=== PATIENT | female | born 1970 | race Caucasian/White ===

== ENCOUNTER 2017-08-11 17:58 | Inpatient (IN) | payer BC ==
[~2017-08-11] VITALS: Ht 170.2 cm; Wt 78.1 kg
[~2017-08-11 17:58] MED LIST: ALBU8I INH; BENZ100 PO; CARB100S PO; MEDR4PAK3 PO; ZITH250T PO
[2017-08-11 18:04] VITALS: BP 137/76; PULSE 89; RESP 16; TEMP 98.3; O2SAT 98
[2017-08-11 18:17] VITALS: BP 123/66; TEMP 98.9; O2SAT 97
[2017-08-11 18:27] LABS: BILIRUBIN, URINE NEG (NEG); BLOOD, URINE LARGE (NEG); GLUCOSE,URINE NEG (NEG); KETONE, URINE NEG (NEG); NITRITE,URINE NEG (NEG); URINE COLOR YELLOW (YELLW/STRAW); URINE LEUKOCYTE ESTERASE NEG (NEG)
[2017-08-11 18:32] LABS: SQUAMOUS EPITHELIAL CELL URINE 0-5 /hpf (0-5); WBC, URINE 0-2 /hpf (0-5)
[2017-08-11] MEDS ORDERED: TEGR200T PO (19:05)
[2017-08-11 19:06] VITALS: BP 125/84; PULSE 86; RESP 18; O2SAT 97
[2017-08-11] MEDS ORDERED: SODIUM CHLOR 0.9% 1000 ML INJ 1,000 ML IV SCH (19:14)
[2017-08-11] MEDS ORDERED: ONDANSETRON HCL 4 MG/2 ML VIAL IVP ONE (19:15)
[2017-08-11] MEDS ORDERED: SODIUM CHLORIDE 0.9% FLUSH 10 ML FLUSH IV FLUSH PRN ×2 (19:15→21:15)
[2017-08-11] MEDS ORDERED: MORPHINE SULFATE 4 MG/ML INJ IV PUSH ONE (19:15)
[2017-08-11] MEDS ORDERED: KETOROLAC TROMETHAMINE 30 MG/ML (IVP) VIAL IVP ONE (19:15)
--- NOTE | 2017-08-11 19:20 | PD ---
HPI Chief Complaint: Flank/Kidney Pain Time Seen by Provider: 18:58 Travel History International Travel<30 days: No Contact w/Intl Traveler<30days: No Traveled to known affect area: No History of Present Illness HPI The patient is a 47-year-old female who presents to the emergency department for right flank pain that started this morning. The patient complains of mid right low back pain that radiates into the right flank. She also complains a hematuria, urgency, and frequency. The patient does have history of kidney stones. The patient has a previous hysterectomy, denies any vaginal bleeding or discharge. She does complain of nausea secondary to the pain. She also complains of loose watery stools throughout the day. She has been getting over recent upper respiratory/viral infection. The patient denies any current fever, chills, or sweats. Symptoms are moderate. There are no current alleviating or exacerbating factors. PFSH Past Medical History Diabetes: No Diminished Hearing: No Medical other: Yes (TRIGEMINAL NEURALGIA, FIBROMYALGIA, ITP) Seizures: Yes (CHILDHOOD) Tetanus Vaccination: > 5 Years Influenza Vaccination: No ?: Not Past Surgical History Gynecologic Surgery: Yes (PARTIAL HYSTERECTOMY) Hysterectomy: Yes (PARTIAL) Social History Alcohol Use: Yes (DAILY) Tobacco Use: Yes (1/2 PPD) Substance Use: No Allergies-Medications (Allergen,Severity, Reaction): Coded Allergies: No Known Allergies (Verified Adverse Reaction, Unknown, 08/11/17) Reported Meds & Prescriptions Reported Meds & Active Scripts Active Reported Tegretol (Carbamazepine) 200 Mg Tab 200 Mg PO DAILY Review of Systems Except as stated in HPI: all other systems reviewed are Neg General / Constitutional: No: Fever Cardiovascular: No: Chest Pain or Discomfort Respiratory: No: Shortness of Breath Gastrointestinal: Positive: Nausea, Vomiting, Diarrhea, Abdominal Pain Genitourinary: Positive: Urgency, Frequency, Hematuria, Flank Pain Skin: No Rash Physical Exam Narrative GENERAL: Awake, alert, pleasant 47-year-old female who appears her stated age and is in no acute respiratory distress. SKIN: Focused skin assessment warm/dry. HEAD: Atraumatic. Normocephalic. EYES: Pupils equal and round. No scleral icterus. No injection or drainage. ENT: No nasal bleeding or discharge. Mucous membranes pink and moist. NECK: Trachea midline. No JVD. CARDIOVASCULAR: Regular rate and rhythm. No murmur appreciated. RESPIRATORY: No accessory muscle use. Clear to auscultation. Breath sounds equal bilaterally. GASTROINTESTINAL: Abdomen soft, tender palpation right flank. Negative Wilson' s. Negative McBurney's. No suprapubic discomfort. Back: Mild right CVA tenderness. MUSCULOSKELETAL: No obvious deformities. No clubbing. No cyanosis. No edema. NEUROLOGICAL: Awake and alert. No obvious cranial nerve deficits. Motor grossly within normal limits. Normal speech. PSYCHIATRIC: Appropriate mood and affect; insight and judgment normal. Data Data Last Documented VS Vital Signs Date Time Temp Pulse Resp B/P (MAP) Pulse Ox O2 Delivery O2 Flow Rate FiO2 08/11/17 20:37 16 08/11/17 20:36 84 131/77 (95) 98 Room Air 08/11/17 18:04 98.3 Orders Orders Urinalysis - C+S If Indicated (08/11/17 18:07) Complete Blood Count With Diff (08/11/17 19:14) Comprehensive Metabolic Panel (08/11/17 19:14) Ct Abd/Pel W/O Iv Contrast (08/11/17 19:14) Iv Access Insert/Monitor (08/11/17 19:14) Ecg Monitoring (08/11/17 19:14) Oximetry (08/11/17 19:14) Morphine Inj (Morphine Inj) (08/11/17 19:15) Ondansetron Inj (Zofran Inj) (08/11/17 19:15) Sodium Chlor 0.9% 1000 Ml Inj (Ns 1000 M (08/11/17 19:14) Sodium Chloride 0.9% Flush (Ns Flush) (08/11/17 19:15) Ketorolac Inj (Toradol Inj) (08/11/17 19:15) Lipase (08/11/17 19:21) Methylprednisolone So Succ Inj (Solumedr (08/11/17 21:00) Admit Order (Ed Use Only) (08/11/17 21:06) Type And Screen (08/11/17 21:06) Consult Hematology (08/11/17 ) Labs Laboratory Tests Test 08/11/17 18:08 08/11/17 19:45 Urine Collection Type CLEAN CATCH Urine Color YELLOW Urine Turbidity CLEAR Urine pH 6.0 Urine Specific [place] LESS/EQUAL 1.005 Urine Protein NEG mg/dL Urine Glucose (UA) NEG mg/dL Urine Ketones NEG mg/dL Urine Occult Blood LARGE Urine Nitrite NEG Urine Bilirubin NEG Urine Urobilinogen 0.2 MG/DL Urine Leukocyte Esterase NEG Urine WBC 0-2 /hpf Urine Squamous Epithelial Cells 0-5 /hpf Microscopic Urinalysis Comment CULT NOT INDICATED White Blood Count 6.7 TH/MM3 Red Blood Count 4.73 MIL/MM3 Hemoglobin 15.0 GM/DL Hematocrit 45.5 % Mean Corpuscular Volume 96.2 FL Mean Corpuscular Hemoglobin 31.8 PG Mean Corpuscular Hemoglobin Concent 33.0 % Red Cell Distribution Width 12.9 % Platelet Count 19 TH/MM3 Mean Platelet Volume 11.2 FL Neutrophils (%) (Auto) 74.2 % Lymphocytes (%) (Auto) 12.8 % Monocytes (%) (Auto) 4.9 % Eosinophils (%) (Auto) 1.9 % Basophils (%) (Auto) 6.2 % Neutrophils # (Auto) 5.0 TH/MM3 Lymphocytes # (Auto) 0.9 TH/MM3 Monocytes # (Auto) 0.3 TH/MM3 Eosinophils # (Auto) 0.1 TH/MM3 Basophils # (Auto) 0.4 TH/MM3 CBC Comment AUTO DIFF Differential Total Cells Counted 100 Neutrophils % (Manual) 78 % Band Neutrophils % 9 % Lymphocytes % 7 % Monocytes % 4 % Eosinophils % 1 % Basophils % 1 % Neutrophils # (Manual) 5.8 TH/MM3 Differential Comment FINAL DIFF MANUAL Platelet Estimate LOW Platelet Morphology Comment NORMAL Red Cell Morphology Comment NORMAL Blood Urea Nitrogen 6 MG/DL Creatinine 0.74 MG/DL Random Glucose 84 MG/DL Total Protein 7.4 GM/DL Albumin 4.0 GM/DL Calcium Level 8.5 MG/DL Alkaline Phosphatase 120 U/L Aspartate Amino Transf (AST/SGOT) 78 U/L Alanine Aminotransferase (ALT/SGPT) 67 U/L Total Bilirubin 0.2 MG/DL Sodium Level 136 MEQ/L Potassium Level 3.5 MEQ/L Chloride Level 103 MEQ/L Carbon Dioxide Level 23.0 MEQ/L Anion Gap 10 MEQ/L Estimat Glomerular Filtration Rate 83 ML/MIN Lipase 264 U/L MDM Medical Decision Making Medical Screen Exam Complete: Yes Emergency Medical Condition: Yes Medical Record Reviewed: Yes Interpretation(s) Laboratory Tests Test 08/11/17 18:08/11/17 19:45 Urine Collection Type CLEAN CATCH Urine Color YELLOW Urine Turbidity CLEAR Urine pH 6.0 Urine Specific [place] LESS/EQUAL 1.005 Urine Protein NEG mg/dL Urine Glucose (UA) NEG mg/dL Urine Ketones NEG mg/dL Urine Occult Blood LARGE Urine Nitrite NEG Urine Bilirubin NEG Urine Urobilinogen 0.2 MG/DL Urine Leukocyte Esterase NEG Urine WBC 0-2 /hpf Urine Squamous Epithelial Cells 0-5 /hpf Microscopic Urinalysis Comment CULT NOT INDICATED White Blood Count 6.7 TH/MM3 Red Blood Count 4.73 MIL/MM3 Hemoglobin 15.0 GM/DL Hematocrit 45.5 % Mean Corpuscular Volume 96.2 FL Mean Corpuscular Hemoglobin 31.8 PG Mean Corpuscular Hemoglobin Concent 33.0 % Red Cell Distribution Width 12.9 % Platelet Count 19 TH/MM3 Mean Platelet Volume 11.2 FL Neutrophils (%) (Auto) 74.2 % Lymphocytes (%) (Auto) 12.8 % Monocytes (%) (Auto) 4.9 % Eosinophils (%) (Auto) 1.9 % Basophils (%) (Auto) 6.2 % Neutrophils # (Auto) 5.0 TH/MM3 Lymphocytes # (Auto) 0.9 TH/MM3 Monocytes # (Auto) 0.3 TH/MM3 Eosinophils # (Auto) 0.1 TH/MM3 Basophils # (Auto) 0.4 TH/MM3 CBC Comment AUTO DIFF Differential Total Cells Counted 100 Neutrophils % (Manual) 78 % Band Neutrophils % 9 % Lymphocytes % 7 % Monocytes % 4 % Eosinophils % 1 % Basophils % 1 % Neutrophils # (Manual) 5.8 TH/MM3 Differential Comment FINAL DIFF MANUAL Platelet Estimate LOW Platelet Morphology Comment NORMAL Red Cell Morphology Comment NORMAL Blood Urea Nitrogen 6 MG/DL Creatinine 0.74 MG/DL Random Glucose 84 MG/DL Total Protein 7.4 GM/DL Albumin 4.0 GM/DL Calcium Level 8.5 MG/DL Alkaline Phosphatase 120 U/L Aspartate Amino Transf (AST/SGOT) 78 U/L Alanine Aminotransferase (ALT/SGPT) 67 U/L Total Bilirubin 0.2 MG/DL Sodium Level 136 MEQ/L Potassium Level 3.5 MEQ/L Chloride Level 103 MEQ/L Carbon Dioxide Level 23.0 MEQ/L Anion Gap 10 MEQ/L Estimat Glomerular Filtration Rate 83 ML/MIN Lipase 264 U/L CT of the abdomen and pelvis without contrast reveals obstructing 3 mm stone at the right UVJ. Differential Diagnosis Differential diagnosis includes nephrolithiasis, pyelonephritis, atypical appendicitis, atypical cholecystitis, ovarian cyst, gastroenteritis, pancreatitis. Narrative Course IV was established, labs are drawn and sent, the patient was placed on cardiac telemetry monitoring and continuous pulse oximetry monitoring. Patient has a previous history of hysterectomy, therefore, no bedside test was obtained. UA reveals large amount of blood. The patient was a chief investigator morphine, Toradol, Zofran, and IV fluids. Noncontrast CT of the abdomen and pelvis was performed. UA reveals large blood. White count is normal. Hemoglobin within normal limits. However, platelets are 19. Patient does have a history of ITP, previous platelets on EMR range from the 63-105 except for today's platelet count of 19. CT is positive for obstructing 3 mm stone at the right UVJ. The patient was reassessed at 8:40 PM, her pain is significantly improved. The on-call dress finisher was paged at 8:43 PM, Dr. Almeida, in regards to ITP with platelets of 19,000. I discussed the patient with Dr. Almeida who recommends admission, steroids, and reevaluation of platelets in the morning. I had a discussion with the patient regarding inpatient and outpatient treatment, I did advise her recommendations were made by hematology for admission. After discussion she was agreeable to be admitted. The patient was admitted to the medical service and administered Solu-Medrol 125 mg intravenously. NSAIDs will be held for her kidney stone pain, patient will be treated with opiates and Tylenol. Physician Communication [facility] I discussed the patient with Dr. Wagoner who agrees with admission. Diagnosis Primary Impression: Nephrolithiasis Additional Impressions: Idiopathic thrombocytopenia Thrombocytopenia Admitting Information Admitting Physician Requests: Admit Condition: Stable Isaac Tucker MD Aug 11, 2017 19:20
[2017-08-11 20:00] LABS: BASOPHIL # 0.4 TH/MM3 (0-0.2); BASOPHIL % 6.2 % (0.0-2.0); EOSINOPHIL # 0.1 TH/MM3 (0-0.4); EOSINOPHIL % 1.9 % (0.0-4.0); HEMATOCRIT 45.5 % (35.0-46.0); LYMPH % 12.8 % (9.0-44.0); LYMPHOCYTE # 0.9 TH/MM3 (1.0-4.8); MEAN CELL VOLUME 96.2 FL (80.0-100.0); MEAN CORPUSCULAR HEMOGLOBIN 31.8 PG (27.0-34.0); MEAN PLATELET VOLUME 11.2 FL (7.0-11.0); MONO % 4.9 % (0.0-8.0); MONOCYTE # 0.3 TH/MM3 (0-0.9); NEUT % 74.2 % (16.0-70.0); RED BLOOD COUNT 4.73 MIL/MM3 (4.00-5.30); RED CELL DISTRIBUTION WIDTH 12.9 % (11.6-17.2); WHITE BLOOD COUNT 6.7 TH/MM3 (4.0-11.0)
[2017-08-11 20:08] LABS: PLATELET COUNT 19 TH/MM3 (150-450)
[2017-08-11 20:16] LABS: CHLORIDE 103 MEQ/L (98-107); SODIUM (NA) 136 MEQ/L (136-145)
[2017-08-11 20:19] LABS: CALCIUM 8.5 MG/DL (8.5-10.1)
[2017-08-11 20:20] LABS: BLOOD UREA NITROGEN 6 MG/DL (7-18); GLUCOSE,RANDOM 84 MG/DL (74-106)
[2017-08-11 20:23] LABS: ALT (GPT) 67 U/L (10-53); AST (GOT) 78 U/L (15-37); CREATININE 0.74 MG/DL (0.50-1.00); GLOMERULAR FILTRATION RATE 83 ML/MIN (>89)
[2017-08-11 20:24] LABS: TOTAL BILIRUBIN ADULT 0.2 MG/DL (0.2-1.0); TOTAL PROTEIN 7.4 GM/DL (6.4-8.2)
[2017-08-11 20:25] LABS: BANDS 9 % (0-6); BASOPHILS 1 % (0-2); LYMPHOCYTES 7 % (9-44); MONOCYTES 4 % (0-8); NEUTROPHIL # MANUAL DIFF 5.8 TH/MM3 (1.8-7.7); POLYS (SEG NEUTROPHILS) 78 % (16-70)
[2017-08-11 20:26] LABS: ALKALINE PHOSPHATASE 120 U/L (45-117)
[2017-08-11 20:36] VITALS: BP 131/77; PULSE 84; RESP 16; O2SAT 98
--- NOTE | 2017-08-11 20:39 | RADRPT ---
EXAM DATE/TIME: 08/11/2017 20:16 [facility] COMPARISON: No previous studies available for comparison. INDICATIONS : Right flank pain. Gross hematuria. ORAL CONTRAST: No oral contrast ingested. RADIATION DOSE: 15.48 CTDIvol (mGy) MEDICAL HISTORY : None SURGICAL HISTORY : Hysterectomy. ENCOUNTER: Initial ACUITY: 1 day PAIN SCALE: 9/10 LOCATION: Right flank TECHNIQUE: Volumetric scanning of the abdomen and pelvis was performed. Using automated exposure control and ad justment of the mA and/or kV according to patient size, radiation dose was kept as low as reasonably achievable to obtain optimal diagnostic quality images. DICOM format image data is available electro nically for review and comparison. FINDINGS: Lower lungs are clear The portion of the liver and spleen are free of focal defects Pancreas and adrenal glands appear normal Right kidney: There is prominence to the right ureter extending down to the right ureterovesical junction where bas e 3 mm stone is evident. Left kidney: is unremarkable There are no remaining calcifications in either kidney There is no ascites. There is no adenopathy. Pelvic contents are unremarkable Review of bone windows reveals only mild degenerative changes. CONCLUSION: Obstructing 3 mm stone at right UVJ Lacho Villanueva MD FACR on August 11, 2017 at 20:34 Board Certified Radiologist. This report was verified electronically.
[2017-08-11] MEDS ORDERED: methylPREDNISolone SOD SUCC 125 MG/2 ML VIAL IV PUSH ONE (21:00)
[2017-08-11] MEDS ORDERED: ONDANSETRON HCL 4 MG/2 ML VIAL IVP PRN (21:15)
[2017-08-11] MEDS ORDERED: BISACODYL 10 MG SUPP RECTAL PRN (21:15)
[2017-08-11] MEDS ORDERED: SENNOSIDES 8.6 MG TAB PO PRN (21:15)
[2017-08-11] MEDS ORDERED: MAGNESIUM HYDROXIDE SUSP 30 ML CUP PO PRN (21:15)
[2017-08-11] MEDS ORDERED: ACETAMINOPHEN/HYDROcodone 325 MG/5 MG TAB PO PRN (21:15)
[2017-08-11] MEDS ORDERED: ACETAMINOPHEN 325 MG TAB PO PRN (21:15)
[2017-08-11] MEDS ORDERED: LACTULOSE SYRUP 20 GM/30 ML CUP PO PRN (21:15)
[2017-08-11] MEDS: SODIUM CHLOR 0.9% 1000 ML INJ 1,000 ML IV SCH (21:34)
[2017-08-11] MEDS: ACETAMINOPHEN/HYDROcodone 325 MG/10 MG TAB PO PRN (21:35)
[2017-08-12] VITALS: BP 108/75; PULSE 82; RESP 20; TEMP 97.2; O2SAT 82
[2017-08-12] MEDS: ACETAMINOPHEN/HYDROcodone 325 MG/10 MG TAB PO PRN ×5 (01:46→21:32)
[2017-08-12 04:00] VITALS: BP 108/72; PULSE 82; RESP 18; TEMP 97.2; O2SAT 95
[2017-08-12 06:59] LABS: AUTOMATED NEUTROPHIL # 6.9 TH/MM3 (1.8-7.7); BASOPHIL % 0.4 % (0.0-2.0); EOSINOPHIL % 0.1 % (0.0-4.0); HEMATOCRIT 43.9 % (35.0-46.0); HEMOGLOBIN 14.8 GM/DL (11.6-15.3); LYMPH % 4.8 % (9.0-44.0); LYMPHOCYTE # 0.4 TH/MM3 (1.0-4.8); MEAN CELL VOLUME 96.4 FL (80.0-100.0); MEAN CORPUSCULAR HEMOGLOBIN 32.4 PG (27.0-34.0); MEAN CORPUSCULAR HGB CONC 33.6 % (32.0-36.0); MEAN PLATELET VOLUME 11.4 FL (7.0-11.0); MONO % 0.7 % (0.0-8.0); MONOCYTE # 0.1 TH/MM3 (0-0.9); RED BLOOD COUNT 4.56 MIL/MM3 (4.00-5.30); RED CELL DISTRIBUTION WIDTH 12.9 % (11.6-17.2); WHITE BLOOD COUNT 7.4 TH/MM3 (4.0-11.0)
[2017-08-12 07:07] LABS: PLATELET COUNT 18 TH/MM3 (150-450)
[2017-08-12 07:13] LABS: ALBUMIN 3.5 GM/DL (3.4-5.0); ALKALINE PHOSPHATASE 113 U/L (45-117); ALT (GPT) 53 U/L (10-53); AST (GOT) 43 U/L (15-37); BICARBONATE 25.3 MEQ/L (21.0-32.0); BLOOD UREA NITROGEN 6 MG/DL (7-18); CALCIUM 8.5 MG/DL (8.5-10.1); CHLORIDE 109 MEQ/L (98-107); CREATININE 0.59 MG/DL (0.50-1.00); GLOMERULAR FILTRATION RATE 108 ML/MIN (>89); GLUCOSE,RANDOM 119 MG/DL (74-106); SODIUM (NA) 141 MEQ/L (136-145); TOTAL BILIRUBIN ADULT 0.3 MG/DL (0.2-1.0); TOTAL PROTEIN 6.7 GM/DL (6.4-8.2)
[2017-08-12 08:00] VITALS: BP 164/72; PULSE 73; TEMP 96.5; O2SAT 97
--- NOTE | 2017-08-12 08:45 | HHI.HP ---
[facility] Primary [facility]ician No Primary Care Physician Admission Diagnosis Nephrolithiasis, ITP, thrombocytopenia Diagnoses: (1) Nephrolithiasis Diagnosis: Principal (2) Idiopathic thrombocytopenia Diagnosis: Principal Chief Complaint: Urinary symptoms Travel History International Travel<30 Days: No Contact w/Intl Traveler <30 Da: No Traveled to Known Affected Are: No History of Present Illness 47-year-old female with known history of kidney stones, idiopathic thrombocytopenia purpura, trigeminal neuralgia, fibromyalgia who presented to the emergency department because of hematuria, urinary symptoms. Patient indicates that she is in normal state of health until yesterday morning when she got up to go to the bathroom and she noticed that she was having hematuria, urinary urgency. She does have history of kidney stones in the past and she progressively got worse throughout the day with hematuria, started having clots , significant spasms had doubled her over in pain. She had an episode of vomiting so she came to emergency department for evaluation. Patient had workup done and was found to have a 3 mm stone in the right UVJ junction. At the present time patient states that her symptoms have improved. She is no longer experiencing any significant hematuria. Her urine is orange in color. Pain is controlled with medication. Patient does have history of a idiopathic thrombocytopenia purpura. She is not under any treatment at this time. Patient was found to have a platelet count of 19, she is given Solu-Medrol in the emergency department. Patient does not know her most recent platelet count. She does not get it checked on a regular basis. She has no other signs of active bleeding other than the hematuria. Because of the above findings, ER physician recommended patient be admitted for further evaluation and management. Review of Systems Gastrointestinal: COMPLAINS OF: Nausea, Vomiting Genitourinary: COMPLAINS OF: Urinary frequency, Urgency, Hematuria Except as stated in HPI: all other systems reviewed are Neg Past Family Social History Past Medical History History of renal lithiasis 15 years ago Idiopathic thrombocytopenia purpura, no recent follow-up Trigeminal neuralgia Fibromyalgia Past Surgical History Partial hysterectomy Reported Medications Reported Meds & Active Scripts Active Reported Tegretol (Carbamazepine) 200 Mg Tab 200 Mg PO DAILY Allergies: Coded Allergies: No Known Allergies (Verified Adverse Reaction, Unknown, 08/11/17) Family History Reviewed his significant father at age 78 with history of stroke and seizure, mother still alive with hypertension Social History Patient smokes one half pack of cigarettes a day since she was 16 years old. She does drink alcohol on a daily basis, 2 drinks daily. Denies any illicit drug Physical Exam Vital Signs Vital Signs Date Time Temp Pulse Resp B/P (MAP) Pulse Ox O2 Delivery O2 Flow Rate FiO2 08/12/17 07:30 18 08/12/17 04:00 97.2 82 18 108/72 (84) 95 08/12/17 00:00 97.2 82 20 108/75 (86) 82 08/11/17 20:37 16 08/11/17 20:36 84 16 131/77 (95) 98 Room Air 08/11/17 19:57 18 08/11/17 19:06 86 18 125/84 (98) 97 Room Air 08/11/17 18:04 98.3 89 16 137/76 (96) 98 Physical Exam GENERAL: Well-developed, well-nourished, in no acute distress. alert and orientated HEENT: Head is normocephalic without any lesions or masses noted. Facial features are symmetric. Eyes: Pupils equal round reactive to light. Extraocular muscles are intact. Conjunctivae were clear. Oropharyngeal: Pharynx without any erythema edema. Tongue is midline without deviation. Buccal mucosa is moist without any masses or lesions NECK: Supple without any masses. Trachea midline no deviation. No JVD, no bruits are appreciated CARDIAC: Regular rhythm, regular rate. S1/S2 are heard. No murmurs gallops or rubs. LUNGS: Clear to auscultation bilaterally. No wheeze, rhonchi or rales. No use of accessory muscles on inspiration or expiration. ABDOMEN: Soft, nontender. Nondistended. Bowel sounds heard in all 4 quadrants. No organomegaly or masses. Negative rebound, negative guarding EXTREMITIES: No edema, pulses are equal bilaterally. No cyanosis or clubbing NEUROLOGY: Mood and affect appear appropriate. Cranial nerves II through XII grossly intact. Muscle strength 5/5 in upper and lower extremities bilaterally. Deep tendon reflexes are 2+ in upper and lower extremities bilaterally. Laboratory Laboratory Tests Test 08/11/17 18:08 08/11/17 19:45 08/12/17 05:33 08/12/17 05:35 Urine Collection Type CLEAN CATCH Urine Color YELLOW Urine Turbidity CLEAR Urine pH 6.0 Urine Specific [place] LESS/EQUAL 1.005 Urine Protein NEG Urine Glucose (UA) NEG Urine Ketones NEG Urine Occult Blood LARGE Urine Nitrite NEG Urine Bilirubin NEG Urine Urobilinogen 0.2 Urine Leukocyte Esterase NEG Urine WBC 0-2 Urine Squamous Epithelial Cells 0-5 Microscopic Urinalysis Comment CULT NOT INDICATED White Blood Count 6.7 7.4 Red Blood Count 4.73 4.56 Hemoglobin 15.0 14.8 Hematocrit 45.5 43.9 Mean Corpuscular Volume 96.2 96.4 Mean Corpuscular Hemoglobin 31.8 32.4 Mean Corpuscular Hemoglobin Concent 33.0 33.6 Red Cell Distribution Width 12.9 12.9 Platelet Count 19 18 Mean Platelet Volume 11.2 11.4 Neutrophils (%) (Auto) 74.2 94.0 Lymphocytes (%) (Auto) 12.8 4.8 Monocytes (%) (Auto) 4.9 0.7 Eosinophils (%) (Auto) 1.9 0.1 Basophils (%) (Auto) 6.2 0.4 Neutrophils # (Auto) 5.0 6.9 Lymphocytes # (Auto) 0.9 0.4 Monocytes # (Auto) 0.3 0.1 Eosinophils # (Auto) 0.1 0.0 Basophils # (Auto) 0.4 0.0 CBC Comment AUTO DIFF AUTO DIFF Differential Total Cells Counted 100 Neutrophils % (Manual) 78 Band Neutrophils % 9 Lymphocytes % 7 Monocytes % 4 Eosinophils % 1 Basophils % 1 Neutrophils # (Manual) 5.8 Differential Comment FINAL DIFF MANUAL AUTO DIFF CONFIRMED Platelet Estimate LOW RARE Platelet Morphology Comment NORMAL NORMAL Red Cell Morphology Comment NORMAL Blood Urea Nitrogen 6 6 Creatinine 0.74 0.59 Random Glucose 84 119 Total Protein 7.4 6.7 Albumin 4.0 3.5 Calcium Level 8.5 8.5 Alkaline Phosphatase 120 113 Aspartate Amino Transf (AST/SGOT) 78 43 Alanine Aminotransferase (ALT/SGPT) 67 53 Total Bilirubin 0.2 0.3 Sodium Level 136 141 Potassium Level 3.5 4.8 Chloride Level 103 109 Carbon Dioxide Level 23.0 25.3 Anion Gap 10 7 Estimat Glomerular Filtration Rate 83 108 Lipase 264 Result Diagram: 08/12/17 0533 08/12/17 0535 Caprini VTE Risk Assessment Caprini VTE Risk Assessment: No/Low Risk (score <= 1) Caprini Risk Assessment Model Point Value = 1 Point Value = 2 Point Value = 3 Point Value = 5 Age 41-60 Minor surgery BMI > 25 kg/m2 Swollen legs Varicose veins or History of unexplained or recurrent spontaneous Oral contraceptives or hormone replacement Sepsis (< 1 month) Serious lung disease, including pneumonia (< 1 month) Abnormal pulmonary function Acute myocardial infarction Congestive heart failure (< 1 month) History of inflammatory bowel disease Medical patient at bed rest Age 61-74 Arthroscopic surgery Major open surgery (> 45 min) Laparoscopic surgery (> 45 min) Malignancy Confined to bed (> 72 hours) Immobilizing plaster cast Central venous access Age >= 75 History of VTE Family history of VTE Factor V Leiden Prothrombin [id number] Lupus anticoagulant Anticardiolipin antibodies Elevated serum homocysteine Heparin-induced thrombocytopenia Other congenital or acquired thrombophilia Stroke (< 1 month) Elective arthroplasty Hip, pelvis, or leg fracture Acute spinal cord injury (< 1 month) Prophylaxis Regimen Total Risk Factor Score Risk Level Prophylaxis Regimen 0-1 Low Early ambulation 2 Moderate Order ONE of the following: *Sequential Compression Device (SCD) *Heparin 5000 units SQ BID 3-4 Higher Order ONE of the following medications: *Heparin 5000 units SQ TID *Enoxaparin/Lovenox 40 mg SQ daily (WT < 150 kg, CrCl > 30 mL/min) *Enoxaparin/Lovenox 30 mg SQ daily (WT < 150 kg, CrCl > 10-29 mL/min) *Enoxaparin/Lovenox 30 mg SQ BID (WT < 150 kg, CrCl > 30 mL/min) AND/OR *Sequential Compression Device (SCD) 5 or more Highest Order ONE of the following medications: *Heparin 5000 units SQ TID (Preferred with Epidurals) *Enoxaparin/Lovenox 40 mg SQ daily (WT < 150 kg, CrCl > 30 mL/min) *Enoxaparin/Lovenox 30 mg SQ daily (WT < 150 kg, CrCl > 10-29 mL/min) *Enoxaparin/Lovenox 30 mg SQ BID (WT < 150 kg, CrCl > 30 mL/min) AND *Sequential Compression Device (SCD) Assessment and Plan Assessment and Plan Renal lithiasis with obstructive uropathy CT scan does show 3 mm stone obstructing at the UVJ junction Continue pain control Continue IV fluids Continue to strain urine Will likely pass on its own Urology consulted for further recommendations Idiopathic thrombocytopenia purpura, untreated Patient was given Solu-Medrol emergency department Continue monitor platelet count, transfuse if platelet count less than 15,000 Hematology consulted for recommendations Trigeminal neuralgia, fibromyalgia Continue home medications DVT prevention Low risk, early ambulation, significant thrombocytopenia Physician Certification 2 Midnight Certification Type: Admission for Inpatient Services Order for Inpatient Services The services are ordered in accordance with Medicare regulations or non- Medicare payer requirements, as applicable. In the case of services not specified as inpatient-only, they are appropriately provided as inpatient services in accordance with the 2-midnight benchmark. Estimated LOS (days): 2 days is the estimated time the patient will need to remain in the hospital, assuming treatment plan goals are met and no additional complications. Post-Hospital Plan: Not yet determined Mane Mobley Aug 12, 2017 08:45
[2017-08-12] MEDS: SODIUM CHLORIDE 0.9% FLUSH 10 ML FLUSH IV FLUSH SCH ×2 (09:25→21:33)
[2017-08-12] MEDS: DOCUSATE SODIUM 50 MG/SENNA 8.6 MG TAB PO SCH ×2 (09:26→21:32)
[2017-08-12] MEDS: carBAMazepine 200 MG TAB PO SCH (09:28)
[2017-08-12] MEDS: SODIUM CHLOR 0.9% 1000 ML INJ 1,000 ML IV SCH ×3 (09:30→19:42)
[2017-08-12] MEDS: TAMSULOSIN HCL 0.4 MG CAP PO SCH (11:11)
[2017-08-12 12:00] VITALS: BP 106/80; PULSE 82; RESP 16; TEMP 96.4; O2SAT 96
[2017-08-12 16:00] VITALS: BP 107/72; PULSE 79; RESP 16; TEMP 96.6; O2SAT 98
--- NOTE | 2017-08-12 18:46 | RADRPT ---
EXAM DATE/TIME: 08/12/2017 17:51 [facility] COMPARISON: No previous studies available for comparison. INDICATIONS : Evaluate for renal calculi. MEDICAL HISTORY : None. SURGICAL HISTORY : Hysterectomy. ENCOUNTER: Subsequent ACUITY: 2 days PAIN SCORE: 4/10 LOCATION: Right abdomen. FINDINGS: Supine view of the abdomen was performed. The abdominal bowel gas pattern is normal. No abnormal ma sses, calcifications, or organomegaly is seen. The osseous structures are unremarkable. CONCLUSION: 1. No acute findings. Previously identified calculus at right UVJ on CT is not identified. Edson Newman MD on August 12, 2017 at 18:43 Board Certified Radiologist. This report was verified electronically.
--- NOTE | 2017-08-12 19:01 | PD.CONS ---
History of Present Illness Service Hematology/oncology. Consult Requested By Hospitalist service. Reason for Consult Thrombocytopenia in a patient with a reported history of immune thrombocytopenic purpura (ITP). Primary Care Physician No Primary Care Physician Diagnoses: (1) Nephrolithiasis (2) Thrombocytopenia History of Present Illness Chief complaint: Cough associated with nasal congestion; several days prior to admission. Generalized malaise; several days prior to admission. Severe right-sided flank pain with radiation to the right groin associated with hematuria; started day of admission. History of chronic easy bruising; chronic. HPI: The patient is a 47-year-old female who reports being diagnosed with immune thrombus cytopenic purpura but 20 years ago when she was undergoing a workup for pancytopenia. She tells me she was diagnosed by her primary care physician who at that time was Dr. Rolando Wolff. The patient reports never having required systemic therapy for her ITP as her platelets were never noted to be less than 60,000. The patient at this point does not have a primary care physician and had not been undergoing routine history and physical examinations her routine blood work , she thinks she may not have had blood work done in several years leading up to this hospitalization. Patient reports feeling in her usual fair state of health up until about a week ago, she then began to notice what she describes as a "viral illness" with associated cough and congestion. On 08/12/2017 she awoke in the morning and noticed blood in her urine, she noticed urinary urgency and suspected a urinary tract infection. She began taking oral Bactrim which she had sitting at home with no improvement. Shortly thereafter she developed severe right- sided flank pain with radiation to the right groin associated with nausea and vomiting. She came into the emergency department for further workup and management. Blood work performed at intake revealed a platelet count of 19, 000. CT of the abdomen and pelvis revealed a right-sided 3 mm stone at the right UVJ. She was initiated on corticosteroids last night, her platelet counts have not significantly improved as of today. Her symptoms of pain however are somewhat better and she denies having additional hematuria. The oncology service has been asked to see her for further management of her thrombocytopenia. Review of Systems Constitutional: DENIES: Diaphoretic episodes, Fatigue, Fever, Weight gain, Weight loss, Chills, Dizziness, Change in appetite, Night Sweats Endocrine: DENIES: Abnorml menstrual pattern, Heat/cold intolerance, Polydipsia , Polyuria, Polyphagia Eyes: DENIES: Blurred vision, Diplopia, Eye inflammation, Eye pain, Vision loss , Photosensitivity, Double Vision Ears, nose, mouth, throat: DENIES: Tinnitus, Hearing loss, Vertigo, Nasal discharge, Oral lesions, Throat pain, Hoarseness, Ear Pain, Running Nose, Epistaxis, Sinus Pain, Toothache, Odynophagia Respiratory: DENIES: Apneas, Cough, Snoring, Wheezing, Hemoptysis, Sputum production, Shortness of breath Cardiovascular: DENIES: Chest pain, Palpitations, Syncope, Dyspnea on Exertion , PND, Lower Extremity Edema, Orthopnea, Claudication Gastrointestinal: COMPLAINS OF: Abdominal pain, Nausea, Vomiting, DENIES: Black stools, Bloody stools, Constipation, Diarrhea, Difficulty Swallowing, Anorexia Genitourinary: COMPLAINS OF: Urinary frequency, Urgency, Hematuria, Dysuria, DENIES: Abnormal vaginal bleeding, Dysmenorrhea, Dyspareunia, Sexual dysfunction , Urinary incontinence, Nocturia, Vaginal discharge Musculoskeletal: DENIES: Joint pain, Muscle aches, Stiffness, Joint Swelling, Back pain, Neck pain Integumentary: DENIES: Abnormal pigmentation, Pruritus, Rash, Nail changes, Breast masses, Breast skin changes, Nipple discharge Hematologic/lymphatic: COMPLAINS OF: Bruising, DENIES: Lymphadenopathy Immunologic/allergic: DENIES: Eczema, Urticaria Neurologic: DENIES: Abnormal gait, Headache, Localized weakness, Paresthesias, Seizures, Speech Problems, Tremor, Poor Balance Psychiatric: DENIES: Anxiety, Confusion, Mood changes, Depression, Hallucinations, Agitation, Suicidal Ideation, Homicidal Ideation, Delusions Except as stated in HPI: all other systems reviewed are Neg Past Family Social History Allergies: Coded Allergies: No Known Allergies (Verified Adverse Reaction, Unknown, 08/11/17) Past Medical History Reported history of ITP Seizure disorder as a child Trigeminal neuralgia Tobaccoism; smoking half a pack a day for the past 15 years Daily alcohol consumption with 2-3 drinks daily. Past Surgical History Partial hysterectomy for uterine fibroids Reported Medications Current inpatient medications: Normal saline 100 cc/h Hydrocodone/acetaminophen 10/325 every 4 hours as needed for pain Tegretol 200 mg p.o. daily Natali-Colace 1 tablet p.o. twice daily Lactulose 30 mL p.o. daily as needed for constipation Milk of magnesia 30 mL p.o. every 12 hours as needed for constipation Prednisone 75 mg p.o. daily Zofran 4 mg IV every 6 hours needed for nausea and vomiting Tamsulosin 0.4 mg p.o. daily Senokot 17.2 mg p.o. every 12 hours as needed for constipation Family History Father recently of complications of strokes. Mother's living, she has a history of hypertension Grandfather is he had lung cancer. Social History Patient is single, she is partnered with a male city weighmaster. She has 2 adult children. Prior to that she was and is now . 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 She reports smoking about half a pack a day, she drinks 2-3 alcoholic beverages daily. Health maintenance: Most recent mammogram was performed when she was in her 30s. She has not had any since. Never has had a colonoscopy. Most recent Pap smear was done prior to her undergoing hysterectomy. Gynecologic history: 2 para 2 Physical Exam Vital Signs Vital Signs Date Time Temp Pulse Resp B/P (MAP) Pulse Ox O2 Delivery O2 Flow Rate FiO2 08/12/17 16:00 96.6 79 16 107/72 (84) 98 08/12/17 12:00 96.4 82 16 106/80 (89) 96 08/12/17 08:00 96.5 73 164/72 (102) 97 08/12/17 07:30 18 08/12/17 04:00 97.2 82 18 108/72 (84) 95 08/12/17 00:00 97.2 82 20 108/75 (86) 82 08/11/17 20:37 16 08/11/17 20:36 84 16 131/77 (95) 98 Room Air 08/11/17 19:57 18 08/11/17 19:06 86 18 125/84 (98) 97 Room Air Physical Exam GENERAL: This is a well-nourished, well-developed patient, in no apparent distress. SKIN: No rashes, ecchymoses or lesions. Cool and dry. HEAD: Atraumatic. Normocephalic. No temporal or scalp tenderness. EYES: Pupils equal round and reactive. Extraocular motions intact. No scleral icterus. No injection or drainage. ENT: Nose without bleeding, purulent drainage or septal hematoma. Throat without erythema, tonsillar hypertrophy or exudate. Uvula midline. Airway patent. NECK: Trachea midline. No JVD or lymphadenopathy. Supple, nontender, no meningeal signs. CARDIOVASCULAR: Regular rate and rhythm without murmurs, gallops, or rubs. RESPIRATORY: Clear to auscultation. Breath sounds equal bilaterally. No wheezes , rales, or rhonchi. GASTROINTESTINAL: Abdomen soft, non-tender, nondistended. No hepato-splenomegaly , or palpable masses. No guarding. MUSCULOSKELETAL: Extremities without clubbing, cyanosis, or edema. No joint tenderness, effusion, or edema noted. No calf tenderness. Negative Homans sign bilaterally. NEUROLOGICAL: Awake and alert. Cranial nerves II through XII intact. Motor and sensory grossly within normal limits. Five out of 5 muscle strength in all muscle groups. Normal speech. Laboratory Laboratory Tests Test 08/11/17 19:45 08/12/17 05:33 08/12/17 05:35 08/12/17 17:45 White Blood Count 6.7 7.4 Red Blood Count 4.73 4.56 Hemoglobin 15.0 14.8 Hematocrit 45.5 43.9 Mean Corpuscular Volume 96.2 96.4 Mean Corpuscular Hemoglobin 31.8 32.4 Mean Corpuscular Hemoglobin Concent 33.0 33.6 Red Cell Distribution Width 12.9 12.9 Platelet Count 19 18 Mean Platelet Volume 11.2 11.4 Neutrophils (%) (Auto) 74.2 94.0 Lymphocytes (%) (Auto) 12.8 4.8 Monocytes (%) (Auto) 4.9 0.7 Eosinophils (%) (Auto) 1.9 0.1 Basophils (%) (Auto) 6.2 0.4 Neutrophils # (Auto) 5.0 6.9 Lymphocytes # (Auto) 0.9 0.4 Monocytes # (Auto) 0.3 0.1 Eosinophils # (Auto) 0.1 0.0 Basophils # (Auto) 0.4 0.0 CBC Comment AUTO DIFF AUTO DIFF Differential Total Cells Counted 100 Neutrophils % (Manual) 78 Band Neutrophils % 9 Lymphocytes % 7 Monocytes % 4 Eosinophils % 1 Basophils % 1 Neutrophils # (Manual) 5.8 Differential Comment FINAL DIFF MANUAL AUTO DIFF CONFIRMED Platelet Estimate LOW RARE Platelet Morphology Comment NORMAL NORMAL Red Cell Morphology Comment NORMAL Blood Urea Nitrogen 6 6 Creatinine 0.74 0.59 Random Glucose 84 119 Total Protein 7.4 6.7 Albumin 4.0 3.5 Calcium Level 8.5 8.5 Alkaline Phosphatase 120 113 Aspartate Amino Transf (AST/SGOT) 78 43 Alanine Aminotransferase (ALT/SGPT) 67 53 Total Bilirubin 0.2 0.3 Sodium Level 136 141 Potassium Level 3.5 4.8 Chloride Level 103 109 Carbon Dioxide Level 23.0 25.3 Anion Gap 10 7 Estimat Glomerular Filtration Rate 83 108 Lipase 264 Result Diagram: 08/12/17 0533 08/12/[address] scan abdomen and pelvis with IV contrast performed on 08/11/2017. Conclusion: Obstructing 3 mm stone at the right UVJ. There is prominence of the right ureter extending down to the right ureter vesicular junction where a 3 mm stone is evident. Left kidney: Unremarkable. No remaining calcifications in either kidney, no ascites, no adenopathy, pelvic contents are unremarkable. Bone windows indicate mild degenerative changes. Course This patient has been admitted to the hospital, she was initiated on IV corticosteroids with methylprednisolone in the emergency department after consultation with the on-call powerhouse laborer. She has been eval by urology and has been recommended conservative management. She denies additional overt bleeding. Assessment and Plan Assessment and Plan 47-year-old female with reported history of ITP diagnosed about 20 years ago, she tells me she has to date not required systemic therapeutic interventions. She tells me up until she was following regularly with her PCP her platelet counts have been greater than 60,000. She denies having had symptoms other than easy bruising. The patient reports having had symptoms of cough and sinus congestion over the past 1 week, she thinks she may have come down with a viral illness. She woke up on 08/11/2017 with complaints of severe right flank pain with radiation to the right inguinal area this was associated with hematuria and nausea and vomiting. She presented to the [facility] emergency department where imaging studies of the abdomen and pelvis revealed an obstructing stone at the UVJ on the right side. CBC revealed platelet counts of 19,000. Assessment of ITP exacerbation In conjunction with an obstructing right ureteric stone was made. Plan: Thrombocytopenia: Obtain Hepatitis panel. Initiate prednisone at 1mg/kg/day. Monitor platelet counts while in the hospital. I have advised the patient abstinence from alcohol consumption. Patient has been advised to avoid nonsteroidal anti-inflammatories due to thrombocytopenia. Follow-up with hematology in the outpatient setting. Ernst Leos MD Aug 12, 2017 19:01
[2017-08-12 20:00] VITALS: BP 111/72; PULSE 85; RESP 20; TEMP 96.5; O2SAT 96
[2017-08-12] MEDS: predniSONE 10 MG TAB PO SCH (21:30)
[2017-08-13] VITALS: BP 97/65; PULSE 78; RESP 18; TEMP 96.8; O2SAT 93
[2017-08-13] MEDS: ACETAMINOPHEN/HYDROcodone 325 MG/10 MG TAB PO PRN (03:28)
[2017-08-13] MEDS: SODIUM CHLOR 0.9% 1000 ML INJ 1,000 ML IV SCH (05:42)
[2017-08-13 06:34] LABS: BASOPHIL # 0.1 TH/MM3 (0-0.2); BASOPHIL % 0.8 % (0.0-2.0); EOSINOPHIL % 0.1 % (0.0-4.0); HEMATOCRIT 40.1 % (35.0-46.0); HEMOGLOBIN 13.3 GM/DL (11.6-15.3); LYMPH % 5.4 % (9.0-44.0); LYMPHOCYTE # 0.5 TH/MM3 (1.0-4.8); MEAN CELL VOLUME 97.5 FL (80.0-100.0); MEAN CORPUSCULAR HEMOGLOBIN 32.4 PG (27.0-34.0); MEAN CORPUSCULAR HGB CONC 33.2 % (32.0-36.0); MEAN PLATELET VOLUME 10.7 FL (7.0-11.0); MONO % 1.2 % (0.0-8.0); MONOCYTE # 0.1 TH/MM3 (0-0.9); NEUT % 92.5 % (16.0-70.0); PLATELET COUNT 22 TH/MM3 (150-450); RED BLOOD COUNT 4.12 MIL/MM3 (4.00-5.30); RED CELL DISTRIBUTION WIDTH 12.8 % (11.6-17.2); WHITE BLOOD COUNT 9.7 TH/MM3 (4.0-11.0)
[2017-08-13 08:00] VITALS: BP 111/72; PULSE 66; RESP 15; TEMP 96.9; O2SAT 97
--- NOTE | 2017-08-13 08:20 | MB ---
cc: Gabriele Montoya MD DATE: 08/12/2017 REASON FOR CONSULTATION: 1. Right distal 3 mm stone at ureterovesical junction. 2. Mild hydronephrosis. 3. Hematuria. HISTORY OF PRESENT ILLNESS: The patient is a 47-year-old male with history of kidney stones, as well as ITP, who presented to the emergency department yesterday with acute onset of right-sided flank pain, gross hematuria and urinary urgency. In the ER, a CT stone protocol was done, which showed a 3 mm distal right ureteral stone with mild hydronephrosis. She was also found to have a platelet count of 19,000. She was subsequently admitted for further evaluation. Urology was consulted for the finding of the stone and gross hematuria. The patient states these symptoms were much worse than the symptoms she had 15 years ago, when she passed her first stone. She states that as the day went on yesterday, her pain progressively worsened to a 9/10, as well as her hematuria worsened to having blood clots and urgency and causing spasms and for her to be doubled over in pain. She has also experienced one episode of vomiting when she came to the ER. Once in the ER, she was given a dose and admitted. She was given a dose of Solu-Medrol and given a dose of Toradol. Over the next course of overnight and into today, her pain has been much improved and her hematuria has cleared up. She has not required any pain medications this afternoon. She does have a family history of kidney stones, as her brother has had kidney stones in the past. She denies frequent urinary tract infections. She denies family history of genitourinary malignancies. She denies weight loss or any unusual bone or back pain. She does not take any calcium supplements. She was told her stone 15 years ago was calcium-based. REVIEW OF SYSTEMS: See HPI. All systems reviewed otherwise were negative. PAST MEDICAL HISTORY: History of kidney stones, history of ITP, trigeminal neuralgia, fibromyalgia. PAST SURGICAL HISTORY: She has had a partial hysterectomy. ALLERGIES: NO DRUG ALLERGIES REPORTED. MEDICATIONS: Include carbamazepine 200 mg p.o. daily. FAMILY HISTORY: Brother had a history of kidney stones. Denies genitourinary malignancy. SOCIAL HISTORY: Smokes 1/2 pack of cigarettes a day since she was 16 years old. Drinks alcohol on a daily basis, 2 drinks daily. Denies any illicit drugs. Currently . PHYSICAL EXAMINATION: VITAL SIGNS: Temperature 96.6, pulse 89, respiration rate 16, BP 107/72, saturating 98% on room air. GENERAL: She is alert and oriented x 3, no apparent distress, pleasant and cooperative lady, appears stated age. HEAD: Normocephalic, atraumatic. EYES: No scleral icterus. Extraocular muscles intact. NECK: Supple. Trachea is midline. No JVD. SKIN: Cool and moist. No ulcers or rashes. EARS: Normal external auditory canals. Hearing is normal. LUNGS: Clear to auscultation bilaterally. No wheezes, rales or rhonchi. HEART: Regular rhythm. No murmurs, gallops, rubs. ABDOMEN: Soft, nontender, nondistended, positive bowel sounds. GENITOURINARY: No CVA tenderness bilaterally. PELVIC: No Indicated at this time. EXTREMITIES: Nontender. No clubbing, cyanosis or edema. NEUROLOGIC: Cranial nerves 2-12 intact. Strength 5/5 in all 4 extremities. PSYCHIATRIC: Normal affect. LABORATORY DATA: Show a white count 7.4, hemoglobin 14.8, hematocrit 43.9, platelet count 18. Sodium 141, potassium 4.8, chloride 109, bicarbonate 25.3, creatinine 0.59, BUN 6. Urine showed large occult blood. IMAGING: CT abdomen and pelvis without contrast, images reviewed. Radiologist report, the patient has a 3 mm stone right at the UVJ, almost passing in the bladder, with mild hydronephrosis. ASSESSMENT: The patient is a 47-year-old female with a history of kidney stones, who was found to have a distal right ureteral stone with mild hydronephrosis. PLAN: 1. Recommend conservative management, give it a trial of passage if she has not passed the stone already. Continue to strain urine. We will start her on Flomax 0.4 mg daily. 2. Fluids and narcotics for pain control. We will check a uric acid and parathyroid hormone. 3. Okay to discharge home from urology standpoint once cleared by hematology/oncology. She can then followup as an outpatient for completion of metabolic workup. If she has not passed the stone in 4 weeks, then she will need a surgical intervention. Thank you for this consult. Please call if any questions, available as needed. MD CLAY Saez , 05:09 PM , 05:37 PM
[2017-08-13] MEDS: TAMSULOSIN HCL 0.4 MG CAP PO SCH (08:22)
[2017-08-13] MEDS: carBAMazepine 200 MG TAB PO SCH (08:22)
[2017-08-13] MEDS: DOCUSATE SODIUM 50 MG/SENNA 8.6 MG TAB PO SCH (08:22)
[2017-08-13] MEDS: predniSONE 10 MG TAB PO SCH (08:23)
--- NOTE | 2017-08-13 08:34 | HHI.DCPOC ---
Discharge Care Plan Diagnosis: (1) Nephrolithiasis (2) Thrombocytopenia (3) Idiopathic thrombocytopenia Goals to Promote Your Health * To prevent worsening of your condition and complications * To maintain your health at the optimal level Directions to Meet Your Goals Take your medications as prescribed Follow your dietary instruction Follow activity as directed Keep your appointments as scheduled Take your immunizations and boosters as scheduled If your symptoms worsen call your PCP, if no PCP go to Urgent Care Center or Emergency Room Smoking is Dangerous to Your Health. Avoid second hand smoke Call the 24-hour hour crisis hotline for domestic abuse at [facility] Aug 13, 2017 08:34
[2017-08-13] MEDS ORDERED: HYDR-3516 PO (08:38)
[2017-08-13] MEDS ORDERED: PRED10 PO (08:38)
[2017-08-13] MEDS: SODIUM CHLORIDE 0.9% FLUSH 10 ML FLUSH IV FLUSH SCH (08:40)
--- NOTE | 2017-08-13 08:41 | HHI.DS ---
Discharge Summary Admission Date Aug 11, 2017 at 21:09 Discharge Date: Aug 13, 2017 Admitting Diagnosis Nephrolithiasis, ITP, thrombocytopenia (1) Nephrolithiasis ICD Code: N20.0 - Calculus of kidney Diagnosis: Principal Status: Acute (2) Idiopathic thrombocytopenia ICD Code: D69.3 - Immune thrombocytopenic purpura Diagnosis: Principal Status: Acute Procedures None Brief History - From Admission 47-year-old female with known history of kidney stones, idiopathic thrombocytopenia purpura, trigeminal neuralgia, fibromyalgia who presented to the emergency department because of hematuria, urinary symptoms. Patient indicates that she is in normal state of health until yesterday morning when she got up to go to the bathroom and she noticed that she was having hematuria, urinary urgency. She does have history of kidney stones in the past and she progressively got worse throughout the day with hematuria, started having clots , significant spasms had doubled her over in pain. She had an episode of vomiting so she came to emergency department for evaluation. Patient had workup done and was found to have a 3 mm stone in the right UVJ junction. At the present time patient states that her symptoms have improved. She is no longer experiencing any significant hematuria. Her urine is orange in color. Pain is controlled with medication. Patient does have history of a idiopathic thrombocytopenia purpura. She is not under any treatment at this time. Patient was found to have a platelet count of 19, she is given Solu-Medrol in the emergency department. Patient does not know her most recent platelet count. She does not get it checked on a regular basis. She has no other signs of active bleeding other than the hematuria. Because of the above findings, ER physician recommended patient be admitted for further evaluation and management. CBC/BMP: 08/13/17 0620 08/12/17 0535 Significant Findings Laboratory Tests Test 08/11/17 18:08 08/11/17 19:45 08/12/17 05:33 08/12/17 05:35 Urine Occult Blood LARGE (NEG) Platelet Count 19 TH/MM3 (150-450) 18 TH/MM3 (150-450) Mean Platelet Volume 11.2 FL (7.0-11.0) 11.4 FL (7.0-11.0) Neutrophils (%) (Auto) 74.2 % (16.0-70.0) 94.0 % (16.0-70.0) Basophils (%) (Auto) 6.2 % (0.0-2.0) Lymphocytes # (Auto) 0.9 TH/MM3 (1.0-4.8) 0.4 TH/MM3 (1.0-4.8) Basophils # (Auto) 0.4 TH/MM3 (0-0.2) Neutrophils % (Manual) 78 % (16-70) Band Neutrophils % 9 % (0-6) Lymphocytes % 7 % (9-44) Platelet Estimate LOW (NORMAL) RARE (NORMAL) Blood Urea Nitrogen 6 MG/DL (7-18) 6 MG/DL (7-18) Alkaline Phosphatase 120 U/L (45-117) Aspartate Amino Transf (AST/SGOT) 78 U/L (15-37) 43 U/L (15-37) Alanine Aminotransferase (ALT/SGPT) 67 U/L (10-53) Estimat Glomerular Filtration Rate 83 ML/MIN (>89) Lymphocytes (%) (Auto) 4.8 % (9.0-44.0) Random Glucose 119 MG/DL (74-106) Chloride Level 109 MEQ/L (98-107) Test 08/12/17 17:45 08/13/17 06:20 Platelet Count 22 TH/MM3 (150-450) Neutrophils (%) (Auto) 92.5 % (16.0-70.0) Lymphocytes (%) (Auto) 5.4 % (9.0-44.0) Neutrophils # (Auto) 9.0 TH/MM3 (1.8-7.7) Lymphocytes # (Auto) 0.5 TH/MM3 (1.0-4.8) Imaging Last Impressions Abdomen X-Ray 08/12/17 0000 Signed Impressions: Service Date/Time: Saturday, August 12, 2017 17:51 - CONCLUSION: 1. No acute findings. Previously identified calculus at right UVJ on CT is not identified. Edson Newman MD Abdomen/Pelvis CT 08/11/17 1914 Signed Impressions: Service Date/Time: Friday, August 11, 2017 20:16 - CONCLUSION: Obstructing 3 mm stone at right UVJ Lacho Villanueva MD [facility] Hospital Course 47-year-old female who Christelle presented to the hospital because of abdominal pain, hematuria. Patient was found to have an obstructive stone in the right UVJ junction with history of renal lithiasis. Patient also has history of idiopathic thrombocytopenia purpura which she has not been undergoing any outpatient treatment. Patient pain is controlled with medication during her stay in the hospital. Hematology was consulted who recommended resumption of prednisone 1 mg/kg daily and follow-up in outpatient setting for further evaluation and management. Urology also evaluated the patient and had x-ray performed which indicated that the previous calcified stone is no longer visible in the area. Patient has passed a stone. Discussed with urology who indicated patient may be discharged home with outpatient follow -up. Patient clinically improved at this time. Pain is controlled. We will plan discharge accordingly. Pt Condition on Discharge: Stable Discharge Disposition: Discharge Home Discharge Time: > 30 minutes Discharge Instructions DIET: Follow Instructions for: As Tolerated, No Restrictions Activities you can perform: Regular-No Restrictions Follow up Referrals: Oncology/Hematology - 2 Weeks with Ernst Leos MD PCP Follow-up - 1 Week Urology - 2 Weeks with Gabriele Montoya MD New Medications: Hydrocodone/Acetaminophen (Hydrocodone-Acetamin 5-325 mg) 5 Mg-325 Mg Tablet 1 TAB PO Q4H PRN for Pain for 3 Days, #18 TAB Prednisone (Prednisone) 10 Mg Tab 75 MG PO DAILY for ITP for 30 Days, #225 TAB Continued Medications: Carbamazepine (Tegretol) 200 Mg Tab 200 MG PO DAILY, #60 TAB 0 Refills [facility] Aug 13, 2017 08:41
== END 2017-08-13 12:35 | disposition home or self-care (01) | DRG 694 ==
LOC: PHED 17:58 → PHEDA 21:09 → PH3A 22:49
PROVIDERS: ADMIT Hospitalist; ATTEND Hospitalist
DX: N13.2 Hydronephrosis with renal and ureteral calculous obstruction (principal); D69.3 Immune thrombocytopenic purpura; G50.0 Trigeminal neuralgia; R31.0 Gross hematuria; F17.210 Nicotine dependence, cigarettes, uncomplicated; M79.7 Fibromyalgia; Z87.442 Personal history of urinary calculi; Z86.69 Personal history of other diseases of the nervous system and sense organs
CPT/HCPCS: 74018; 74176; 80053; 80074; 81001; 82652; 83690; 83970; 84550; 85007; 85025; 85027; 86850; 86900; 86901; 96361; 96374; 96375; J1885; J2270; J2405; J2930; J7030; J7512